=== PATIENT | male | born 1950 | race Caucasian/White ===

== ENCOUNTER 2018-10-06 17:45 | Emergency (ER) | payer MEDICARE, OTHER ==
[2018-10-06] MEDS: KETOROLAC 30 MG INJ IM (18:14)
== END 2018-10-06 19:43 | disposition home or self-care (01) ==
LOC: FTE 17:45
DX: S39.012A Strain of muscle, fascia and tendon of lower back, initial encounter (principal); S13.9XXA Sprain of joints and ligaments of unspecified parts of neck, initial encounter; V49.40XA Driver injured in collision with unspecified motor vehicles in traffic accident, initial encounter
CPT/HCPCS: 72050; 72100; 96372; 99284-25